=== PATIENT | female | born 1980 | race African-American/Black ===

== ENCOUNTER 2016-05-06 13:23 | Emergency (ER) | payer MEDICAID ==
[~2016-05-06] VITALS: Ht 160 cm; Wt 110.2 kg
[~2016-05-06 13:23] MED LIST: ACCUNEB SO1.25 MG/1 INH; AMOXICILLIN 50500 M1 PO; APAP500 PO; BENADRYL25 MG PO; DERMOPLAST SPRA56 ML; HCTZ; HYDROCORTISO28.35 G1; HYDROCORTISONE30 G9 RE; IBUPROFEN 800800 M1; IBUPROFEN 800800 M1 PO; MEDROLDOSEPACK PO; METFORMIN 500500 MG PO; NORCO 5-325 TA1 EACH PO; SERTRALINE HCL50 MG PO; SYNTHROID125 MCG PO; TUCKS MEDICATE1 EAC1; VALIUM5 MG PO; WELLBUTRIN XL300 M1 PO; ZOLOFT50 MG PO
[2016-05-06] MEDS ORDERED: LEVOTHYROXIN0.112 M1 PO (13:27)
[2016-05-06] MEDS ORDERED: SERTRALINE HCL100 MG PO (13:28)
[2016-05-06 14:36] VITALS: BP 149/80
== END 2016-05-06 14:36 | disposition home or self-care (01) ==
LOC: ER 13:23
DX: S61.211A Laceration without foreign body of left index finger without damage to nail, initial encounter (principal); E03.9 Hypothyroidism, unspecified; F41.9 Anxiety disorder, unspecified; J45.909 Unspecified asthma, uncomplicated; W27.8XXA Contact with other nonpowered hand tool, initial encounter; Y93.89 Activity, other specified; Y92.89 Other specified places as the place of occurrence of the external cause; Y99.8 Other external cause status

== ENCOUNTER 2017-10-23 15:06 | Emergency (ER) | payer MEDICAID ==
[~2017-10-23] VITALS: Ht 162.6 cm; Wt 110.2 kg
--- NOTE | ~2017-10-23 | EKG ---
[address] [address] ELECTROCARDIOGRAM REPORT Name: ALCON PERALTA Room #: [facility] [id number] Admission: 10/23/17 Attend Phys: Discharge: 10/23/17 Date of : 78 Report #: [id number] THIS REPORT FOR: //name// [facility] ED Test Date: 2017-10-23 Test Time: 15:45:22 Pat Name: ALCON PERALTA Department: Room: Gender: F Countersinker: MZOOK : 1980 Requested By: Laura Khalil Order Number: [id number] MD: Shine Aparicio Measurements Intervals [place] Rate: 95 P: -88 [place]: 109 QRS: 53 QRSD: 89 T: 15 QT: 336 QTc: 423 Interpretive Statements Ectopic atrial rhythm No previous ECG available for comparison Electronically Signed On 10-23-2017 16:47:41 CDT by Shine Aparicio [email or web address] <ELECTRONICALLY SIGNED> By: Shine Aparicio MD, [facility] 10/23/17 [id number] [id number] 1545 Shine Aparicio MD, FACC /EPI
[~2017-10-23 15:06] MED LIST changes: +LEVOTHYROXIN0.112 M1 PO; +SERTRALINE HCL100 MG PO
[2017-10-23 15:32] LABS: ABSOLUTE NEUTROPHILS 7.9 thou/uL (1.4-8.2); BASOPHILS 0.5 % (0.0-2.0); HEMATOCRIT 43.5 % (37.0-47.0); LYMPHOCYTES 31.7 % (24.0-44.0); MCH 27.3 pg (26.0-34.0); MCHC 32.3 g/dL (28.0-37.0); MCV 84.5 fL (80.0-100.0); MONOCYTES 4.3 % (1.0-8.0); PLATELET COUNT 212 thou/uL (150-400); POLYS 61.5 % (36.0-66.0); RBC 5.14 mil/uL (4.20-5.00); RDW 14.1 % (10.5-14.5); WBC 12.9 thou/uL (4.0-11.0)
[2017-10-23 15:44] LABS: ANION GAP 4 mmol/L (7-16); BUN 13 mg/dL (7-18); CHLORIDE 106 mmol/L (98-107); CO2 25 mmol/L (21-32); CREATININE 0.9 mg/dL (0.6-1.0); GLUCOSE 102 mg/dL (74-106); POTASSIUM 3.8 mmol/L (3.5-5.1); SODIUM 135 mmol/L (136-145)
[2017-10-23 15:53] LABS: TROPONIN-I <0.06 ng/mL (<0.06)
[2017-10-23 16:29] LABS: URINE BILIRUBIN NEGATIVE (Negative); URINE BLOOD NEGATIVE (Negative); URINE CLARITY CLEAR; URINE COLOR YELLOW; URINE GLUCOSE-RANDOM* NEGATIVE (Negative); URINE KETONES NEGATIVE (Negative); URINE LEUKOCYTES NEGATIVE (Negative); URINE NITRITE NEGATIVE (Negative); URINE PROTEIN (DIPSTICK) NEGATIVE (Negative); URINE UROBILINOGEN 0.2 E.U./dl (0.2-1.0)
[2017-10-23 16:37] VITALS: BP 118/78
== END 2017-10-23 16:38 | disposition home or self-care (01) ==
LOC: ER 15:06
PROVIDERS: Emergency Medicine
DX: R42 Dizziness and giddiness (principal); H53.8 Other visual disturbances; R00.0 Tachycardia, unspecified; E03.9 Hypothyroidism, unspecified; F41.9 Anxiety disorder, unspecified; J45.909 Unspecified asthma, uncomplicated